=== PATIENT | female | born 1975 | race Caucasian/White ===

== ENCOUNTER 2016-05-02 12:26 | Emergency (ER) | payer MEDICARE, MEDICAID ==
[~2016-05-02] VITALS: Ht 175.3 cm; Wt 77.3 kg
[~2016-05-02 12:26] MED LIST: AMITRIPTYLINE10 MG PO; ASPIR-LOW81 MG PO; ASPIRIN E.C. 8181 MG PO; BACTROBAN 22GM22 GM TP; CEPHALEXIN250 M1 PO; CEPHALEXIN500 M1 PO; COUMADIN 77.5 MG/TAB PO; COUMADIN PO; COUMADIN7.5 MG PO; DESYREL 50MG50 MG; DIFLUCAN PO; DOXYCYCLINE 10100 MG PO; FLEXERIL 1010 MG/TAB PO; FOLIC ACID PO; FOLIC ACID1 MG PO; HYDROCODONE/APAP PO; INDERAL 20MG20 MG PO; LEVAQUIN 5500 MG/TAB PO; LEVOTHROID0.175 MG PO; LEVOXYL0.15 MG; LEXAPRO PO; LEXAPRO20 MG PO; LISINOPRIL10 MG PO; LORTAB 2.5/5001 TAB; LORTAB 7.5/5001 TAB PO; LOVENOX 8080 MG/0.8 SQ; MIDRIN CAPSULE1 CAP PO; NEURONTIN300 MG PO; NORCO 325 MG-51 TAB PO; OXYBUTYNIN5 MG PO; PERCOCET 650 MG1 TAB PO; PREDNISONE20 MG PO; PROVENTIL0.09 MG/A1 IH; ROBITUSSIN A-C S1 M1 PO; SYNTHROID 0.10.15 MG PO; SYNTHROID0.175 MG PO; TESSALON P100 MG/CAP PO; TESSALON PERLE200 MG PO; TUSS PO; TYLENOL #3 301 UDTAB PO; VIT B 12; VITAMIN B11000 MCG/M IM; VITAMIN B12 IM; ZITHROMAX 250M250 MG PO; ZITHROMAX Z PA250 MG PO; ZOFRAN 4MG T4 MG/TAB PO
[2016-05-02 12:28] VITALS: BP 138/78; TEMP 98.2
[2016-05-02] MEDS ORDERED: LEVOXYL0.137 MG PO (12:44)
[2016-05-02] MEDS ORDERED: MEDROL 4MG DOSPA4 MG PO (13:21)
[2016-05-02] MEDS ORDERED: NORCO 325 MG-7.1 TAB PO (13:22)
[2016-05-02 13:28] VITALS: PULSE 114
[2016-05-02] MEDS ORDERED: PRINIVIL10 MG PO (13:29)
[2016-05-02] MEDS ORDERED: ESTRACE0.1 MG/GM VG (13:30)
[2016-05-02] MEDS ORDERED: NEURONTIN300 MG/CAP PO (13:35)
[2016-05-02] MEDS ORDERED: PRILOSEC 20MG20 MG PO (13:35)
[2016-05-02] MEDS ORDERED: LYRICA 50MG CAP50 MG PO (13:36)
[2016-05-02] MEDS ORDERED: DITROPAN XL 5MG5 M1 PO (13:36)
[2016-05-02] MEDS ORDERED: DESYREL 50MG50 MG PO (13:36)
[2016-05-02] MEDS ORDERED: LINZESS290CAP (13:37)
== END 2016-05-02 13:39 | disposition home or self-care (01) ==
LOC: COL.ER 12:26
DX: M54.5 Low back pain (principal); G89.29 Other chronic pain; I10 Essential (primary) hypertension

== ENCOUNTER 2016-11-01 17:25 | Emergency (ER) | payer MEDICARE, MEDICAID ==
[~2016-11-01] VITALS: Ht 175.3 cm; Wt 76.4 kg
[~2016-11-01 17:25] MED LIST changes: +DESYREL 50MG50 MG PO; +DITROPAN XL 5MG5 M1 PO; +ESTRACE0.1 MG/GM VG; +LEVOXYL0.137 MG PO; +LINZESS290CAP; +LYRICA 50MG CAP50 MG PO; +MEDROL 4MG DOSPA4 MG PO; +NEURONTIN300 MG/CAP PO; +NORCO 325 MG-7.1 TAB PO; +PRILOSEC 20MG20 MG PO; +PRINIVIL10 MG PO
[2016-11-01 17:26] VITALS: BP 130/76; TEMP 98.2
[2016-11-01 18:36] VITALS: PULSE 72
== END 2016-11-01 18:38 | disposition home or self-care (01) ==
LOC: COL.ER 17:25
DX: L84 Corns and callosities (principal); E72.12 Methylenetetrahydrofolate reductase deficiency; E03.9 Hypothyroidism, unspecified; I10 Essential (primary) hypertension

== ENCOUNTER 2017-01-18 09:47 | Emergency (ER) | payer MEDICARE, MEDICAID ==
[~2017-01-18] VITALS: Ht 172.7 cm; Wt 75.0 kg
[~2017-01-18 09:47] MED LIST changes: -LINZESS290CAP; +LINZESS290CAP PO; +ZESTRIL 10MG10 MG PO
[2017-01-18 09:53] VITALS: TEMP 97.4
[2017-01-18 10:14] LABS: BASO # 0.1 (0.0-0.2); BASO % 0.8 % (0.0-2.0); EOS # 0.1 (0.0-0.7); EOS % 1.6 % (0-4.0); GRAN # 3.1 (1.4-6.5); GRAN % 48.4 % (42.2-75.2); HEMATOCRIT 41.8 % (37.0-47.0); HEMOGLOBIN 13.9 g/dl (12.5-16.0); LYMPH # 2.6 (1.2-3.4); LYMPH % 40.1 % (20.0-51.0); MEAN CELL VOLUME 94 fl (80.0-100.0); MEAN CORPUSCULAR HEMOGLOBIN 31 pg (27.0-31.0); MEAN CORPUSCULAR HGB CONC 33 g/dl (33.0-37.0); MEAN PLATELET VOLUME 9.8 fl (7.4-10.4); MONO # 0.6 (0.1-0.6); MONO % 8.9 % (1.7-9.3); PLATELET COUNT 340 K/mm3 (130-400); RED BLOOD COUNT 4.45 M/mm3 (4.10-5.30); WHITE BLOOD COUNT 6.4 K/mm3 (4.8-10.8)
[2017-01-18 10:24] LABS: ADJUSTED CALCIUM 9.1 mg/dL (8.4-10.2); ALBUMIN 4.9 gm/dL (3.5-5.0); BILIRUBIN,TOTAL 1.8 mg/dL (0.0-1.0); CALCIUM 9.8 mg/dL (8.4-10.2); CREATININE, serum 0.66 mg/dL (0.52-1.25); POTASSIUM 4.3 mmol/L (3.4-5.0); TOTAL PROTEIN 7.4 gm/dL (6.4-8.2)
[2017-01-18 11:56] LABS: MUCOUS Present /lpf; PH 5 (5-8); SQUAMOUS EPITHELIAL 0-2 /hpf; URINE APPEARANCE Hazy; URINE BACTERIA Rare /hpf; URINE BILIRUBIN Negative (NEGATIVE); URINE BLOOD 3+ (NEGATIVE); URINE COLOR Yellow; URINE GLUCOSE Negative (NEGATIVE); URINE KETONE Trace (NEGATIVE); URINE LEUKOCYTE ESTERASE Negative (NEGATIVE); URINE PROTEIN(semi-quant) 1+ (NEGATIVE); URINE RBC >50 /hpf; URINE UROBILINOGEN Negative (NEGATIVE)
[2017-01-18] MEDS ORDERED: LEXAPRO 10MG10 MG PO (11:56)
[2017-01-18] MEDS ORDERED: ATIVAN 0.50.5 MG/TAB PO (11:56)
[2017-01-18] MEDS ORDERED: DESYREL 50MG50 MG PO (11:56)
[2017-01-18] MEDS ORDERED: DIFLUCAN50 MG PO (11:58)
[2017-01-18 13:22] LABS: COLLECTION METHOD CATHETER
[2017-01-18] MEDS ORDERED: FLOMAX 0.40.4 MG/CAP PO (13:43)
[2017-01-18] MEDS ORDERED: CIPRO 500MG TA500 MG PO (13:43)
[2017-01-18] MEDS ORDERED: PERCOCET 325 MG1 TA2 PO (13:43)
[2017-01-18] MEDS ORDERED: ZOFRAN 4MG T4 MG/TAB PO (13:43)
[2017-01-18 14:06] VITALS: BP 100/62; PULSE 86
== END 2017-01-18 14:06 | disposition home or self-care (01) ==
LOC: COL.ER 09:47
PROVIDERS: Physician Assistant
DX: N13.2 Hydronephrosis with renal and ureteral calculous obstruction (principal); R00.0 Tachycardia, unspecified; Z85.850 Personal history of malignant neoplasm of thyroid; Z87.442 Personal history of urinary calculi; Z86.73 Personal history of transient ischemic attack (TIA), and cerebral infarction without residual deficits; Z86.718 Personal history of other venous thrombosis and embolism; Z87.39 Personal history of other diseases of the musculoskeletal system and connective tissue; Z90.710 Acquired absence of both cervix and uterus; Z90.49 Acquired absence of other specified parts of digestive tract; Z98.84 Bariatric surgery status; Z98.890 Other specified postprocedural states
CPT/HCPCS: J1170; J1885; J2270; J2405; J7030

== ENCOUNTER 2017-02-09 22:33 | Observation (INO) | payer MEDICARE, MEDICAID ==
[~2017-02-09] VITALS: Ht 152.4 cm; Wt 74.8 kg
[~2017-02-09 22:33] MED LIST changes: +ATIVAN 0.50.5 MG/TAB PO; +CIPRO 500MG TA500 MG PO; +DIFLUCAN50 MG PO; +FLOMAX 0.40.4 MG/CAP PO; +LEXAPRO 10MG10 MG PO; +MIDRIN 325 MG-11 CAP PO; -MIDRIN CAPSULE1 CAP PO; +PERCOCET 325 MG1 TA2 PO
[2017-02-09 23:40] LABS: COLLECTION METHOD CLEAN CATCH
[2017-02-09 23:42] LABS: BASO % 0.4 % (0.0-2.0); EOS # 0.1 (0.0-0.7); EOS % 0.7 % (0-4.0); GRAN # 5.6 (1.4-6.5); GRAN % 67.8 % (42.2-75.2); HEMOGLOBIN 12.7 g/dl (12.5-16.0); LYMPH % 24.1 % (20.0-51.0); MEAN CELL VOLUME 92 fl (80.0-100.0); MEAN CORPUSCULAR HEMOGLOBIN 31 pg (27.0-31.0); MEAN CORPUSCULAR HGB CONC 33 g/dl (33.0-37.0); MEAN PLATELET VOLUME 9.8 fl (7.4-10.4); MONO # 0.6 (0.1-0.6); MONO % 6.8 % (1.7-9.3); PLATELET COUNT 279 K/mm3 (130-400); RED BLOOD COUNT 4.13 M/mm3 (4.10-5.30); WHITE BLOOD COUNT 8.3 K/mm3 (4.8-10.8)
[2017-02-09 23:47] LABS: MUCOUS Present /lpf; PH 8 (5-8); URINE APPEARANCE Clear; URINE BACTERIA Rare /hpf; URINE BILIRUBIN Negative (NEGATIVE); URINE BLOOD 2+ (NEGATIVE); URINE COLOR Amber; URINE GLUCOSE Negative (NEGATIVE); URINE KETONE Trace (NEGATIVE); URINE LEUKOCYTE ESTERASE Negative (NEGATIVE); URINE PROTEIN(semi-quant) 1+ (NEGATIVE); URINE RBC >50 /hpf; URINE UROBILINOGEN >=4.0 mg/dL (NEGATIVE); URINE WBC 0-2 /hpf
[2017-02-09 23:51] LABS: ADJUSTED CALCIUM 8.5 mg/dL (8.4-10.2); ALANINE AMINOTRANSFERASE 35 U/L (9-52); ALBUMIN 4.3 gm/dL (3.5-5.0); ALKALINE PHOSPHATASE 68 U/L (50-136); ANION GAP 11 mmol/L (7-16); BILIRUBIN,TOTAL 1.5 mg/dL (0.0-1.0); BLOOD UREA NITROGEN 18 mg/dL (7-17); CALCIUM 8.7 mg/dL (8.4-10.2); CARBON DIOXIDE 24 mmol/L (22-30); CHLORIDE 105 mmol/L (98-107); CREATININE, serum 0.59 mg/dL (0.52-1.25); GLUCOSE 108 mg/dL (74-106); LIPASE 111 U/L (23-300); POTASSIUM 3.4 mmol/L (3.4-5.0); SODIUM 140 mmol/L (137-145); TOTAL PROTEIN 6.8 gm/dL (6.4-8.2)
[2017-02-10] VITALS (15 sets, daily range): BP systolic 106–147; BP diastolic 49–89; PULSE 60–110; TEMP 97.7–98.4
[2017-02-10 00:02] LABS: C-REACTIVE PROTEIN < 0.5 mg/dL (0.0-0.9)
[2017-02-11 06:00] VITALS: BP 161/110; PULSE 73; TEMP 97.7
[2017-02-11 09:10] VITALS: BP 125/57; PULSE 68; TEMP 97.9
[2017-02-11 14:03] VITALS: BP 125/56; PULSE 93; TEMP 97.9
== END 2017-02-11 16:55 | disposition home or self-care (01) ==
LOC: COL.ER 22:33 → SURG 02-10 00:46
PROVIDERS: Family Medicine
DX: N20.1 Calculus of ureter (principal); N30.10 Interstitial cystitis (chronic) without hematuria; D53.9 Nutritional anemia, unspecified; I10 Essential (primary) hypertension; Z90.49 Acquired absence of other specified parts of digestive tract; Z90.710 Acquired absence of both cervix and uterus; Z85.850 Personal history of malignant neoplasm of thyroid; Z87.891 Personal history of nicotine dependence; Z86.718 Personal history of other venous thrombosis and embolism
CPT/HCPCS: C1769; G0378; J0690; J0744; J1100; J1170; J1885; J2250; J2405; J2550; J2704; J3010; J7030; J7120; Q9967

== ENCOUNTER 2017-03-30 16:33 | Emergency (ER) | payer MEDICARE, MEDICAID ==
[~2017-03-30] VITALS: Ht 175.3 cm; Wt 73.2 kg
[2017-03-30 16:36] VITALS: BP 119/61; TEMP 98.4
[2017-03-30 18:02] LABS: INFLUENZA A NEGATIVE; INFLUENZA B NEGATIVE
[2017-03-30] MEDS ORDERED: TAMIFLU 75MG75 MG PO (18:31)
[2017-03-30 19:43] VITALS: PULSE 94
== END 2017-03-30 19:43 | disposition home or self-care (01) ==
LOC: COL.ER 16:33
PROVIDERS: Physician Assistant
DX: J11.1 Influenza due to unidentified influenza virus with other respiratory manifestations (principal)

== ENCOUNTER 2017-11-16 08:56 | Emergency (ER) | payer MEDICARE, MEDICAID ==
[~2017-11-16] VITALS: Ht 172.7 cm; Wt 80.0 kg
[~2017-11-16 08:56] MED LIST changes: +TAMIFLU 75MG75 MG PO
[2017-11-16 08:59] VITALS: BP 126/56; TEMP 97.6
[2017-11-16] MEDS ORDERED: PREDNISONE20 MG PO (09:20)
[2017-11-16 09:29] VITALS: PULSE 70
== END 2017-11-16 09:30 | disposition home or self-care (01) ==
LOC: COL.ER 08:56
DX: L50.9 Urticaria, unspecified (principal); I10 Essential (primary) hypertension; Z85.850 Personal history of malignant neoplasm of thyroid; Z87.891 Personal history of nicotine dependence